=== PATIENT | female | born 2000 | race Caucasian/White ===

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

== ENCOUNTER 2021-03-09 19:46 | Emergency (ER) | payer OTHER | END 2021-03-09 19:50 | disposition left against medical advice (07) | LOC: ER 19:46 | DX: T23.109A Burn of first degree of unspecified hand, unspecified site, initial encounter (principal); Z53.21 Procedure and treatment not carried out due to patient leaving prior to being seen by health care provider ==